=== PATIENT | female | born 1985 | race Caucasian/White ===

== ENCOUNTER 2020-08-02 13:35 | Emergency (ER) | payer OTHER ==
[~2020-08-02 13:35] MED LIST: COLACE100 MG PO; PRINIVIL5 MG PO
[2020-08-02] MEDS ORDERED: IBU800 MG PO (15:30)
== END 2020-08-02 16:00 | disposition home or self-care (01) ==
LOC: ER1 13:35
DX: S92.211A Displaced fracture of cuboid bone of right foot, initial encounter for closed fracture (principal); M79.89 Other specified soft tissue disorders; I10 Essential (primary) hypertension; Z79.899 Other long term (current) drug therapy; W01.0XXA Fall on same level from slipping, tripping and stumbling without subsequent striking against object, initial encounter; Y92.009 Unspecified place in unspecified non-institutional (private) residence as the place of occurrence of the external cause
CPT/HCPCS: 73630; 99283